=== PATIENT | female | born 1975 | race Caucasian/White ===

== ENCOUNTER 2022-08-24 23:40 | Emergency (ER) | payer BC, OTHER ==
[~2022-08-24] VITALS: Ht 167.6 cm; Wt 65.8 kg
== END 2022-08-25 01:20 | disposition home or self-care (01) ==
LOC: ER 23:50
DX: S00.81XA Abrasion of other part of head, initial encounter (principal); W01.0XXA Fall on same level from slipping, tripping and stumbling without subsequent striking against object, initial encounter; Y93.01 Activity, walking, marching and hiking; Y99.0 Civilian activity done for income or pay; J45.909 Unspecified asthma, uncomplicated; M43.20 Fusion of spine, site unspecified
CPT/HCPCS: 70450; 99283

== ENCOUNTER 2025-01-08 15:46 | Emergency (ER) | payer BC, OTHER ==
[~2025-01-08] VITALS: Ht 167.6 cm; Wt 65.8 kg
[2025-01-08 15:50] VITALS: TEMP 98
[2025-01-08 17:15] VITALS: PULSE 70; RESP 16; O2SAT 99
[2025-01-08] MEDS ORDERED: MUPIROCIN22 GM TOP (18:03)
[2025-01-08] MEDS ORDERED: DOXYCYCLINE HY100 MG PO (18:03)
== END 2025-01-08 18:51 | disposition home or self-care (01) ==
LOC: ER 16:37
DX: M20.11 Hallux valgus (acquired), right foot (principal); M21.611 Bunion of right foot; M25.551 Pain in right hip; J45.909 Unspecified asthma, uncomplicated; F41.9 Anxiety disorder, unspecified; F32.A Depression, unspecified; F90.9 Attention-deficit hyperactivity disorder, unspecified type
CPT/HCPCS: 99284